=== PATIENT | female | born 1955 | race Caucasian/White ===

== ENCOUNTER → 2022-03-13 | Outpatient (CLI) | payer MEDICARE, OTHER | LOC: M SLEEP 20:00 | PROVIDERS: ATTEND Nurse Practitioner Family | DX: G47.33 Obstructive sleep apnea (adult) (pediatric) (principal) ==

== ENCOUNTER → 2022-03-16 | Outpatient (CLI) | payer MEDICARE, OTHER | LOC: M PLARAD 10:31 | DX: M25.512 Pain in left shoulder (principal); M19.012 Primary osteoarthritis, left shoulder; M77.8 Other enthesopathies, not elsewhere classified ==

== ENCOUNTER → 2022-03-30 | Outpatient (CLI) | payer MEDICARE | LOC: M SLEEP 20:00 | PROVIDERS: ATTEND Nurse Practitioner Family | DX: G47.33 Obstructive sleep apnea (adult) (pediatric) (principal) ==

== ENCOUNTER 2022-05-07 16:36 | Emergency (ER) | payer MEDICARE, OTHER ==
[~2022-05-07] VITALS: Ht 170.2 cm; Wt 77.1 kg
[2022-05-07] MEDS ORDERED: ISOVUE-370 76% 100ML VIAL As Ordered ONE (18:48)
[2022-05-07 20:32] VITALS: BP 158/72
== END 2022-05-07 20:35 | disposition home or self-care (01) ==
LOC: M ED 16:36
DX: U07.1 COVID-19 (principal); I10 Essential (primary) hypertension; E78.5 Hyperlipidemia, unspecified; Z88.1 Allergy status to other antibiotic agents; Z88.8 Allergy status to other drugs, medicaments and biological substances; K76.0 Fatty (change of) liver, not elsewhere classified; K80.20 Calculus of gallbladder without cholecystitis without obstruction
CPT/HCPCS: 36415; 70498; 71275; 80047; 99284; Q9967

== ENCOUNTER 2022-05-10 13:49 | Emergency (ER) | payer MEDICARE, OTHER ==
[~2022-05-10] VITALS: Ht 162.6 cm; Wt 77.6 kg
[2022-05-10] MEDS ORDERED: NS 1,000 ML IV ONE (18:45)
[2022-05-10 19:23] LABS: BASO % 0.3 % (0.0-1.0); EOS # 0.3 10^3/uL (0.0-0.5); HEMATOCRIT 47.1 % (36.0-47.0); HEMOGLOBIN 15.1 g/dl (12.0-15.5); LYMPH # 1.3 10^3/uL (1.5-5.0); LYMPH % 14.8 % (24.0-44.0); MEAN CORPUSCULAR HEMOGLOBIN 29.7 pg (27.0-33.0); MEAN CORPUSCULAR HGB CONC 32.1 g/dl (32.0-36.5); MEAN CORPUSCULAR VOLUME 92.5 fl (80.0-96.0); MONO # 0.6 10^3/uL (0.0-0.8); MONO % 7.1 % (2.0-8.0); NEUTROPHILS # 6.7 10^3/uL (1.5-8.5); NEUTROPHILS % 74.5 % (36.0-66.0); PLATELET COUNT, AUTOMATED 133 10^3/uL (150-450); RED BLOOD COUNT 5.09 10^6/uL (4.00-5.40)
[2022-05-10 19:29] LABS: ERYTHROCYTE SEDIMENTATION RATE 32 mm/hr (0-30)
[2022-05-10 19:32] LABS: INR 0.84; PROTHROMBIN TIME 11.7 SECONDS (12.5-14.5)
[2022-05-10 19:50] LABS: ALBUMIN 3.5 G/DL (3.2-5.2); ALKALINE PHOSPHATASE 84 U/L (46-116); ALT/SGPT 28 U/L (7.0-40); AST/SGOT 20 U/L (<34); BILIRUBIN,DIRECT 0.1 MG/DL (<0.4); BILIRUBIN,TOTAL 0.5 MG/DL (0.3-1.2); BLOOD UREA NITROGEN 11 MG/DL (9-23); CALCIUM LEVEL 8.6 MG/DL (8.3-10.6); CARBON DIOXIDE LEVEL 28 MMOL/L (20-31); CHLORIDE LEVEL 106 MMOL/L (98-107); CREATININE FOR GFR 0.72 MG/DL (0.55-1.30); GLOMERULAR FILTRATION RATE > 60.0 (>45); GLUCOSE, FASTING 98 MG/DL (74-106); MAGNESIUM LEVEL 2.2 MG/DL (1.8-2.4); PHOSPHORUS LEVEL 2.8 MG/DL (2.4-5.1); POTASSIUM SERUM 4.2 MMOL/L (3.5-5.1); SODIUM LEVEL 141 MMOL/L (136-145); TOTAL PROTEIN 6.2 G/DL (5.7-8.2)
[2022-05-10 20:04] LABS: CPK CREATINE PHOSPHOKINASE 37 U/L (34-145)
[2022-05-10] MEDS ORDERED: NYST-38 SS (20:54)
[2022-05-10] MEDS ORDERED: KETO2CR TOP (20:54)
[2022-05-10 21:12] VITALS: BP 130/73
== END 2022-05-10 21:15 | disposition home or self-care (01) ==
LOC: M ED 13:49
DX: B37.0 Candidal stomatitis (principal); I10 Essential (primary) hypertension; E78.5 Hyperlipidemia, unspecified; Z91.09 Other allergy status, other than to drugs and biological substances